=== PATIENT | male | born 1945 | race Hispanic/Latino ===

== ENCOUNTER 2018-04-14 05:48 | Day surgery (SDC) | payer OTHER ==
[2018-03-23 12:09] LABS: Absolute Lymphocytes (CBC) 2.6 K/uL (0.7-4.9); Absolute Monocytes 0.5 K/uL (0.1-1.3); Absolute Neutrophil 4.3 K/uL (1.8-8.0); Basophils % 1.2 % (0-1.3); Eosinophils % 6.1 % (0-4.4); Hematocrit 42.8 % (39.6-49.0); Lymphocytes % 32.5 % (15.3-44.8); MCH 31.8 pg (27.0-35.0); MCV 92.8 fL (80-100); MPV 9.6 fL (7.6-11.3); Monocytes % 6.6 % (3.3-12.3); RBC Red Blood Cell Count 4.62 M/uL (4.33-5.43)
[2018-03-23 12:15] LABS: Potassium 3.9 mmol/L (3.5-5.1)
--- NOTE | 2018-03-23 12:21 | RAD REPORT ---
EXAM DESCRIPTION: RAD - Chest Pa And Lat (2 Views) - 03/23/2018 11:45 am CLINICAL HISTORY: preop Chest pain. COMPARISON: No comparisons FINDINGS: Mild linear subsegmental atelectasis are present in the left lung base. The lungs are othe rwise clear. The heart is normal in size. No displaced fractures. IMPRESSION: Linear subsegmental atelectasis is present left lung base.
--- NOTE | 2018-03-23 16:07 | EKG ---
Test Date: 2018-03-23 Test Time: 11:37:24 Laborer Driver: LAURA MEASUREMENT RESULTS: Intervals: Rate: 58 TN: 150 QRSD: 86 QT: 406 QTc: 398 Hines: P: 33 TN: 150 QRS: 46 T: 46 INTERPRETIVE STATEMENTS: Sinus bradycardia Otherwise normal ECG Compared to ECG 03/07/1996 10:43:00 Sinus rhythm no longer present Electronically Signed On 03-23-18 16:06:46 CDT by Bello Perea
--- OUTSIDE RECORDS SUMMARY | 2018-04-14 05:50 | XMS REPORT ---
:1945 Author Organization e[employer] Care Team Providers Name Role Phone Jesus Ballard Provider Role Unavailable Allergies, Adverse Reactions, Alerts Substance Reaction Event Type penicillin Info Not Available Drug Allergy Problems Problem Type Condition Code Onset Dates Condition Status Assessment Acute pain of left shoulder M25.512 Active Problem Complete tear of left rotator cuff M75.122 Active Assessment Complete tear of left rotator cuff M75.122 Active Assessment Bicipital tendinitis of left M75.22 Active shoulder Medications Medication Code Code Instructions Start End Date Status Dosage System Date losartan [facility] 41976393868 20 mg Active one tab daily [place]orvastatin [place] 01279659031 20mg Active 1 tablet by mouth at bedtime [place] [facility] 88835341918 7.5-325 MG Mar 23, Active 1 tablet Orally every 2017 as needed hrs Results No Known Results Summary Purpose eClinicalWorks Submission
--- OUTSIDE RECORDS SUMMARY | 2018-04-14 05:50 | XMS REPORT ---
:1945 Author Organization [employer] Care Team Providers Name Role Phone Jesus Ballard Provider Role Unavailable Allergies No Known Allergies Problems Problem Type Condition Code Onset Dates Condition Status Problem Complete tear of left rotator cuff M75.122 Active Medications Medication Code System Code Instructions Start End Date Status Dosage Date [facility] 79463775796 7.5-325 MG Orally Mar 23, Active 1 tablet every 6 hrs 2018 as needed Results No Known Results Summary Purpose eClinicalWorks Submission
--- OUTSIDE RECORDS SUMMARY | 2018-04-14 05:50 | XMS REPORT ---
[...] left M75.22 Active shoulder Medications Medication Code System Code Instructions Start Date End Date Status Dosage losartan ND 46816992167 20 mg Active one tab daily atorvastatin ND 98124166375 20mg Active 1 tablet by mouth at bedtime Results No Known Results Summary Purpose eClinicalWorks Submission
[2018-04-14] MEDS ORDERED: CLINDAMYCIN INJ 600 MG in NA CHLORIDE 0.9% 50 ML IV SCH (06:00)
[2018-04-14] MEDS ORDERED: Ringers Lactate 1,000 ML IV ONE ×2 (06:14→08:47)
[2018-04-14] MEDS ORDERED: FENTANYL CITR 100 MCG/2 ML ONE (06:33)
[2018-04-14] MEDS ORDERED: LIDOCAINE 2% MPF 5 ML VIAL ONE ×2 (06:33→07:33)
[2018-04-14] MEDS ORDERED: DEXAMETHASONE 4 MG/ML VIAL ONE (06:34)
[2018-04-14] MEDS ORDERED: MIDAZOLAM HCL 2 MG/2 ML INJ ONE (06:34)
[2018-04-14] MEDS ORDERED: ROPLVACAINE HCL 20 ML ONE (06:34)
[2018-04-14] MEDS ORDERED: NS 0.9% VIAL 10 ML ONE (06:39)
[2018-04-14] MEDS ORDERED: EPINEPHRINE/PF 1 MG/ML AMP ONE (06:49)
[2018-04-14] MEDS ORDERED: PROPOFOL 200 MG/20 ML VIAL IV ONE (07:32)
[2018-04-14] MEDS ORDERED: ROCURONIUM 50 MG/5 ML VIAL IV ONE (07:33)
[2018-04-14] MEDS ORDERED: ONDANSETRON HCL 40 MG/20 ML VIAL ONE (08:09)
[2018-04-14] MEDS ORDERED: EPHEDRINE SULF 50 MG/10 ML SYR ONE (08:21)
[2018-04-14] MEDS ORDERED: KETAMINE HCL 500 MG/5 ML VIAL ONE (09:18)
[2018-04-14] MEDS ORDERED: GLYCOPYRROLATE 0.2 MG/ML SYR ONE (09:34)
[2018-04-14] MEDS ORDERED: NEOSTIGMINE 1 MG/ML -5 ML SYRINGE ONE (09:38)
--- NOTE | 2018-04-14 10:03 | P.BOP ---
Preoperative diagnosis: left shoulder rotator cuff tear, impingement syndrome Postoperative diagnosis: same, left shoulder SLAP tear Primary procedure: left shoulder arthroscopic rotator cuff repair Secondary procedure: left shoulder SLAP debridement Other procedure(s): left shoulder subacromial decompression Leader Assembler: NONE,NONE Estimated blood loss: 5 cc Specimen: none Findings: see dictation Anesthesia: General Complications: None Implants: 1-5.5 mm corkscrew, 2- 4.75 mm swivelock Fluids & blood products: per anesthesia Transferred to: Recovery Room Condition: Good
--- NOTE | 2018-04-14 10:19 | RAD REPORT ---
EXAM DESCRIPTION: RAD - Shoulder 1 View - 04/14/2018 10:14 am CLINICAL HISTORY: Right shoulder surgery FINDINGS: Frontal view of the right shoulder was obtained. No fracture or dislocation is seen. Mild joint space narrowing involves the acromioclavicular joint.
[2018-04-14] MEDS ORDERED: HYDROCODONE/APAP 7.5/325 MG TAB ONE (11:19)
--- NOTE | 2018-04-15 18:19 | OP ---
Date of Procedure: 04/14/2018 Surgeon: Jesus Ballard MD Preoperative Diagnoses: 1.Left shoulder rotator cuff tear. 2.Left shoulder impingement syndrome. Postoperative Diagnoses: 1.Left shoulder rotator cuff tear. 2.Left shoulder impingement syndrome. 3.Left shoulder superior labrum anterior and posterior tear. Procedures Performed: 1.Left shoulder arthroscopic rotator cuff repair. 2.Left shoulder arthroscopic superior labrum anterior and posterior tear debridement. 3.Left shoulder arthroscopic subacromial decompression. Anesthesia: General endotracheal. Fluids: Per Anesthesia record. Estimated Blood Loss: Less than 10 cc. Implants: 1.One 5.5 mm Arthrex SwiveLock. 2.Two 4.75 mm Arthrex SwiveLocks. Complications: None. Indication For Procedure: Rashard is a 72-year-old male who presented to [facility] with signs, symptoms, and MRI findings consistent with a left shoulder rotator cuff tear. I discussed with the patient at [facility] risks and benefits associated with operative and nonoperative treatment. He expressed understandi ng and elected to proceed with operative treatment. Description Of Procedure: After informed consent was obtained, the patient was identified in the pre operative holding area. The left upper extremity was marked. The patient was then brought to the [facility] where he underwent an interscalene block to his left upper extremity performed by Anesthesia. He was then taken back to the operating room, transferred to the operating table in a supine fashion and placed under general endotracheal anesthesia. He was then placed in the beach chair position with h is extremities well padded. The left upper extremity was then examined. The patient had full range of motion without any instability of the left shoulder joint. The left upper extremity was then prep ped and draped in usual sterile fashion. A time-out was initiated. The correct patient and procedur e were confirmed and identified. The patient did receive his preoperative prophylactic antibiotics. Standard posterior portal was created by first injecting the glenohumeral joint from the posterior p ortal position using a spinal needle with 30 cc of normal saline to distend the capsule. A posterior portal was created. The arthroscope was brought in from the posterior portal position and diagnosti c arthroscopy was performed. An anterior portal was also placed and a cannula was placed within the anterior portal. The patient was noted to have a full-thickness tear of the anterior supraspinatus, which was retracted to the level of the midhumeral head. The posterior aspect of the supraspinatus a nd infraspinatus were found to be intact. The patient was also noted to have a type 2 SLAP tear, and an auto-rupture of his biceps tendon. The biceps tendon was no longer intra-articular. The SLAP te ar was then debrided using an arthroscopic shaver. There was no significant anterior posterior alfredo l tearing. There were no loose bodies found within the axillary pouch. Next, the arthroscope was br ought in the subacromial space, and subacromial bursectomy was performed. A lateral portal was creat ed and cannula was placed. The tear was then found to be reducible to the greater tuberosity. Arthr oscopic shaver was used to debride the soft tissue off the greater tuberosity and created a bleeding bony bed. Stab incision was made just lateral to the acromion in a single medial row anchor was plac ed which was a 5.5 mm Arthrex double loaded corkscrew. The 4 sutures were then passed through the mathias praspinatus and using a FastPass scorpion suture passer and they were tied in horizontal mattress typ e fashion. They were then crisscrossed with use of 2 lateral row anchors. There was good reduction of the supraspinatus tear on the footprint. The remaining sutures were then cut. Next, the soft tis hugh was then debrided off the undersurface of the acromion using a radiofrequency ablator and a subac romial decompression was performed. An arthroscopic ramone was then used to perform an acromioplasty a nd for completion of the decompression. The arthroscopic instruments were then removed without compl ication. The portals were approximated using a 3-0 Monocryl. Sterile dressings were applied. The p atrobin was placed in a shoulder immobilizer, awakened, and transferred to PACU in stable condition. Postoperative Plan: Rashard will follow the medium rotator cuff repair protocol and will begin physica l therapy 4 weeks postoperatively. He will follow up with me next week for wound check and dressing changes. JOVANNA/MODL Voice ID: [id number] Report ID: [id number]
== END 2018-04-14 11:45 | disposition home or self-care (01) ==
LOC: OR 05:48
PROVIDERS: ATTEND Orthopaedic Surgery Sports Medicine
PROC: 0RNK4ZZ Release Left Shoulder Joint, Percutaneous Endoscopic Approach (ICD-10-PCS; 2018-04-14)
PROC: 0RBK4ZZ Excision of Left Shoulder Joint, Percutaneous Endoscopic Approach (ICD-10-PCS; 2018-04-14)
PROC: 0LQ24ZZ Repair Left Shoulder Tendon, Percutaneous Endoscopic Approach (ICD-10-PCS; principal; 2018-04-14 07:30)
DX: M75.122 Complete rotator cuff tear or rupture of left shoulder, not specified as traumatic (principal); S43.432A Superior glenoid labrum lesion of left shoulder, initial encounter; M75.42 Impingement syndrome of left shoulder; M75.22 Bicipital tendinitis, left shoulder; I10 Essential (primary) hypertension; E78.00 Pure hypercholesterolemia, unspecified; Z88.0 Allergy status to penicillin; Z82.49 Family history of ischemic heart disease and other diseases of the circulatory system; Z83.3 Family history of diabetes mellitus; Z80.9 Family history of malignant neoplasm, unspecified
CPT/HCPCS: 29822; 29826; 29827; 36415; 71046; 73020; 80048; 85025; 85610; 85730; 93005; J0171; J2250; J2405; J2710; J2795; J3010